=== PATIENT | female | born 1950 | race Caucasian/White ===

== ENCOUNTER 2021-04-03 20:03 | Inpatient (IN) | payer MEDICARE, OTHER ==
[~2021-04-03] VITALS: Ht 157.5 cm; Wt 49.9 kg
--- NOTE | 2021-04-03 21:00 | NUR ---
PT BIBRA C/O AGGRESSIVE BEHAVIOR AND SI WITH PLAN TO RUN INTO TRAFFIC. PT TAMAZIGHT SPEAKING WITH NIECE AT BEDSIDE FOR TRANSLATION. PER NIECE, PT IS NOT "ANSWERING CORRECTLY BECAUSE SHE HAS NOT SLEPT FOR A FEW DAYS". PT ATTACHED TO MONITOR AND POX. MD AT BEDSIDE FOR EVAL. SITTER AT BEDSIDE. PT GIVEN CALL LIGHT WITHIN REACH
[2021-04-03 21:32] LABS: BASOPHILS # (AUTO) 0.1 K/uL (0.0-0.2); EOSINOPHILS % (AUTO) 4.1 % (0.0-6.0); HEMATOCRIT 39 % (33-45); HEMOGLOBIN 12.2 g/dL (11.5-14.8); LYMPHOCYTES # (AUTO) 1.5 K/uL (0.8-4.8); MEAN CORPUSCULAR HGB CONC 31 g/dl (31.0-36.0); MEAN CORPUSCULAR VOLUME 75 fL (82-100); MONOCYTES # (AUTO) 0.4 K/uL (0.1-1.30); MONOCYTES % (AUTO) 6.3 % (2.0-12.0); NEUTROPHILS # (AUTO) 3.6 K/uL (1.8-8.9); NEUTROPHILS % (AUTO) 62.6 % (43.0-81.0); PLATELET COUNT (AUTO) 180 K/uL (150-450); WHITE BLOOD COUNT (AUTO) 5.8 K/uL (4.3-11.0)
[2021-04-03 21:48] LABS: CALCIUM, SERUM 8.7 mg/dL (8.5-10.1); CARBON DIOXIDE 22 mmol/L (21-32); CHLORIDE 106 mmol/L (98-107); CREATININE 0.6 mg/dL (0.6-1.3); GLUCOSE 107 mg/dL (74-106); POTASSIUM 3.3 mmol/L (3.5-5.1); SODIUM SERUM 139 mmol/L (136-145); UREA NITROGEN, BLOOD 11 mg/dL (7-18)
[2021-04-03 21:54] LABS: ALANINE AMINOTRANSFERASE 19 U/L (12-78); ALBUMIN 4.1 g/dL (3.4-5.0); ALKALINE PHOSPHATASE 65 U/L (46-116); ASPARTATE AMINOTRANSFERASE 25 U/L (15-37); BILIRUBIN,DIRECT 0.3 mg/dL (0.0-0.2); BILIRUBIN,TOTAL 0.9 mg/dL (0.2-1.0); TOTAL PROTEIN, SERUM 8.3 g/dL (6.4-8.2)
[2021-04-03 21:57] LABS: ACETAMINOPHEN < 2 ug/ml (10-30)
[2021-04-03 21:58] LABS: ALCOHOL, BLOOD < 3 mg/dL (0-0)
--- NOTE | 2021-04-03 22:00 | NUR ---
URINE SENT TO LAB
[2021-04-03 22:32] LABS: BILIRUBIN,URINE Negative (NEGATIVE); COLOR,URINE YELLOW (YELLOW); LEUKOCYTE ESTERASE ,URINE Small (NEGATIVE); NITRITE, URINE Negative (NEGATIVE); PROTEIN,URINE Trace mg/dl (NEGATIVE); UGLUCOSE Negative (NEGATIVE); UROBILINOGEN,URINE 0.2 EU/dL (0.2)
[2021-04-03 22:34] LABS: BACTERIA,URINE 1+ /HPF (None Seen); SQUAMOUS EPITHELIAL CELL,UR Few /HPF (None Seen)
--- NOTE | 2021-04-03 22:36 | NUR ---
TAKEN TO RADIOLOGY
[2021-04-03] MEDS ORDERED: AMLODIPINE BESYLATE 5 MG TABLET PO ONE (23:30)
[2021-04-03] MEDS ORDERED: CEPHALEXIN MONOHYDRATE 500 MG CAPSULE PO ONE ×2 (23:30→23:49)
[2021-04-03] MEDS ORDERED: AMLODIPINE BESYLATE 5 MG TABLET ONE (23:48)
--- NOTE | 2021-04-04 00:35 | NUR ---
REPORT GIVEN TO ABUNDIO PENALOZA FOR WILMAR
--- NOTE | 2021-04-04 01:30 | NUR ---
PT TRANSPORTED TO UNIT ON [facility]
[2021-04-04 02:15] VITALS: BP 145/95
[2021-04-04] MEDS ORDERED: MAGNESIUM HYDROXIDE 30 ML UDC PO PRN (02:30)
[2021-04-04] MEDS ORDERED: ACETAMINOPHEN 325 MG TABLET PO PRN (02:30)
[2021-04-04] MEDS ORDERED: MAG HYDROX/AL HYDROX/SIMETH 30 ML UDC PO PRN (02:30)
[2021-04-04] MEDS ORDERED: BLOOD SUGAR DIAGNOSTIC 1 EACH STRIP IN ONE (02:45)
[2021-04-04 03:23] VITALS: BP 105/68
--- NOTE | 2021-04-04 04:03 | NUR ---
ADMISSION NOTES: ADMITTED THIS 70Y/O FEMALE PATIENT ADMIT FROM [facility] ER / INTAILLY FROM HOME , ADMITTED TO [facility] ON 5150 HOLD , PER HOLD DTS, DTO, GOING OUTSIDE HER HOME AND RUNNING IN THE STREETS ,STARTING STRIKING OUT AT HER FAMILY MEMBER, HEATING VOCIES , DELUSIONAL PARANOID, AGITATION UPON FACE TO FACE ASSESSMENT PATIENT IS A&O X 1 , ANXIOUS , PARNOID DISHELVED ,EASILY GETS AGITATED, DISORGNIZED, TALKING TO SELF ,POOR HYGINE REFUSED TO TAKE SHOWER DENIES SI /HI AT THIS TIME, PT. IS POOR HISTORIAN, POOR INSIGHT ,POOR JUDGEMENT, PT. DENIES SI HI AT THIS TIME , BOTH MD AWARE AND NOTIFIED OF THE ADMISSION, BELONGINGS CONTRABAND WERE DONE , PT. REFUSED TO SIGNS OF ADMISSION PAPER DUE TO MENTAL CONDITION,NURSING ASSESSMENT DONE ,PT. RIGHTS DISCUSS BY FILE CLERK , PROVIDE THE PT. WITH HANDBOOK, AND MEDICATIONS GUIDE, ENVIRONMENTAL SAFETY CHECK DONE, ENCOURAGED PT. VERBALIZED ANY FEELING CONCERN TO STAFF, ORIENT TO UNIT POLICY, NO ACUTE DISTRESS NOTED,VITAL SIGNS WNL ,DENIES ANY PAIN AT THIS TIME,WILL CONTINUE TO MONITOR FOR Q15 SAFETY AND BEHAVIOR.
[2021-04-04 08:00] VITALS: BP 150/75
[2021-04-04] MEDS ORDERED: CEPHALEXIN MONOHYDRATE 500 MG CAPSULE PO ONE ×2 (09:00)
[2021-04-04] MEDS ORDERED: AMLODIPINE BESYLATE 5 MG TABLET PO ONE ×2 (09:00)
--- NOTE | 2021-04-04 09:30 | NUR ---
GRISELDA Initial Discharge Plan: Patient currently resides at home located [address] [place] [address]. Patient's niece Jose F ([phone]) is involved in pt's care. Patient's sister Jessica ([phone]) is also involved in pt's care. GRISELDA contacted niece and discussed treatment/discharge plan. GRISELDA will work with the family and MD to coordinate proper discharge plan.
--- NOTE | 2021-04-04 09:31 | NUR ---
GRISELDA Family Contact: GRISELDA contacted pt's niece Cyndy Kohler ([phone]) to gather collateral and discuss treatment/discharge plan. GRISELDA educated niece on [phone]. Niece stated that pt has been suffering with mental illness for 20 years and has refused to see a doctor or take any medications. Niece stated that they live near pt and are able to manage pt, however, it has been difficult she stated due to her behavior. Niece reported pt lives with her son but he is out of town for two weeks. Niece reported pt has been physically aggressive at home and has been very confused. She stated pt has been experiencing auditory hallucinations and that she has been "following directions". Niece stated that pt's sisters are involved in her case and her sister Jessica ([phone]) is involved as well. GRISELDA discussed discharge options because niece stated they are unsure if they will be able to manage pt at home. GRISELDA educated on nursing facility option or home with home health services. Niece stated she would have to discuss with family and will let this repairer typewriter know.
--- NOTE | 2021-04-04 09:40 | NUR ---
Treatment Plan: Pt refused to sign treatment plan and appeared very confused.
[2021-04-04] MEDS: risperiDONE 1 MG TABLET PO SCH ×2 (11:44→17:19)
[2021-04-04] MEDS: AMLODIPINE BESYLATE 5 MG TABLET PO SCH (14:39)
[2021-04-04 16:00] VITALS: BP 129/74
--- NOTE | 2021-04-04 16:56 | NUR ---
RN-CO: DR MURCIA OFFICE WAS CONTACTED, SPOKE WITH "HANY" REGARDING CONSULT ORDERED BY DR HENDRICKS.
--- NOTE | 2021-04-04 19:49 | NUR ---
GPS RN NOTE. RECEIVED PATIENT SLEEPING IN BED. PATIENT ALSO HAD 2 FAMILY VISITORS. NOTE THAT PATIENT IS SWEDISH SPEAKING ONLY. NO S/S OF PAIN AT THIS TIME. PATIENT SHOWS NO S/S OF DISTRESS. PATIENT RESPIRATIONS ARE UNLABORED AND EQUAL RISE/FALL OF CHEST. PATIENT APPEARS ALERT ORIENTED X1. PATIENT APPEARS UNKEMPT AND IS KNOWN FOR CHEEKING MEDICATIONS, WILL BUT IS MED COMPLIANT WITH FREQUENT ENCOURAGEMENT. 2 SIDE RAILS ARE UP AND CALL DAILEY IS WITHIN REACH. BED LOCKED AND LOW. WILL CONTINUE TO MONITOR Q15 MINUTES FOR SAFETY.
[2021-04-04 20:00] VITALS: BP 162/86
[2021-04-05 08:00] VITALS: BP 127/81
[2021-04-05 08:19] LABS: HEMATOCRIT 40 % (33-45); HEMOGLOBIN 12.3 g/dL (11.5-14.8); LYMPHOCYTES # (AUTO) 1.4 K/uL (0.8-4.8); LYMPHOCYTES % (AUTO) 28.3 % (20.0-44.0); MEAN CORPUSCULAR HGB CONC 31 g/dl (31.0-36.0); MEAN CORPUSCULAR VOLUME 75 fL (82-100); MONOCYTES # (AUTO) 0.4 K/uL (0.1-1.30); MONOCYTES % (AUTO) 7.9 % (2.0-12.0); NEUTROPHILS # (AUTO) 2.9 K/uL (1.8-8.9); NEUTROPHILS % (AUTO) 59.8 % (43.0-81.0); PLATELET COUNT (AUTO) 189 K/uL (150-450); WHITE BLOOD COUNT (AUTO) 4.8 K/uL (4.3-11.0)
[2021-04-05] MEDS: risperiDONE 1 MG TABLET PO SCH ×2 (08:33→16:30)
[2021-04-05] MEDS: AMLODIPINE BESYLATE 5 MG TABLET PO SCH (08:33)
[2021-04-05 08:45] LABS: CALCIUM, SERUM 8.6 mg/dL (8.5-10.1); CREATININE 0.8 mg/dL (0.6-1.3); MAGNESIUM 2.4 mg/dL (1.8-2.4); POTASSIUM 3.4 mmol/L (3.5-5.1)
[2021-04-05] MEDS ORDERED: POTASSIUM CHLORIDE 20 MEQ TAB.PRT.SR PO SCH (09:30)
--- NOTE | 2021-04-05 14:56 | NUR ---
GRISELDA Family Contact: GRISELDA received a call from pt's niece Cristela Kohler ([phone]) who stated that family made a decision that they would want pt back home upon dc.
[2021-04-05 16:00] VITALS: BP 130/77
[2021-04-05] MEDS: ENSURE ENLIVE CHOC 237 ML CAN PO SCH (17:23)
[2021-04-05 20:00] VITALS: BP 124/98
[2021-04-06 07:25] LABS: CALCIUM, SERUM 8.5 mg/dL (8.5-10.1); CREATININE 0.7 mg/dL (0.6-1.3); POTASSIUM 3.4 mmol/L (3.5-5.1)
[2021-04-06 08:00] VITALS: BP 152/87
[2021-04-06] MEDS: ENSURE ENLIVE CHOC 237 ML CAN PO SCH ×2 (08:51→18:06)
[2021-04-06] MEDS: AMLODIPINE BESYLATE 5 MG TABLET PO SCH (08:52)
[2021-04-06] MEDS: risperiDONE 1 MG TABLET PO SCH (08:52)
[2021-04-06] MEDS ORDERED: POTASSIUM CHLORIDE 20 MEQ TAB.PRT.SR PO ONE ×2 (10:00→13:30)
--- NOTE | 2021-04-06 13:54 | NUR ---
Individual Therapy: SW met with patient to conduct brief therapy on patient's presenting problem disorganized thought content. Patient appears confused and disorganized and does not respond to this SW. Pt appeared to be responding to internal stimuli.
[2021-04-06 16:00] VITALS: BP 140/99
[2021-04-06] MEDS: risperiDONE-M 0.5 MG TAB.RAPDIS PO SCH (18:05)
[2021-04-06 20:09] VITALS: BP_SYST 138; BP_SYST 158; BP_DIAS 80; BP_DIAS 98
[2021-04-07 06:52] LABS: CALCIUM, SERUM 8.5 mg/dL (8.5-10.1); CREATININE 0.6 mg/dL (0.6-1.3); POTASSIUM 4.2 mmol/L (3.5-5.1)
[2021-04-07 08:00] VITALS: BP 146/96
[2021-04-07] MEDS: AMLODIPINE BESYLATE 5 MG TABLET PO SCH (08:33)
[2021-04-07] MEDS: risperiDONE-M 0.5 MG TAB.RAPDIS PO SCH ×3 (08:33→20:50)
[2021-04-07] MEDS: ENSURE ENLIVE CHOC 237 ML CAN PO SCH ×2 (08:34→17:19)
[2021-04-07 16:00] VITALS: BP 150/71
[2021-04-07 20:00] VITALS: BP 155/87
[2021-04-07] MEDS: LORAZEPAM 1 MG TABLET PO PRN (22:19)
--- NOTE | 2021-04-07 22:21 | NUR ---
RN NOTES: ANXIETY PT. C/O VERY ANXIOUS ,PACING IN HER ROOM , PARANOID HYPERVERBAL , TALKING TO SELF, NON REDICTABLE, ATIVAN 1 MG PO PRN GIVEN , WILL CONTINUE TO MONITOR.
[2021-04-08 08:00] VITALS: BP 153/88
[2021-04-08] MEDS: risperiDONE-M 0.5 MG TAB.RAPDIS PO SCH ×3 (08:25→21:20)
[2021-04-08] MEDS: AMLODIPINE BESYLATE 5 MG TABLET PO SCH (08:26)
[2021-04-08] MEDS: ENSURE ENLIVE CHOC 237 ML CAN PO SCH ×2 (08:28→16:36)
[2021-04-08 16:00] VITALS: BP 152/87
[2021-04-08 20:04] VITALS: BP 141/90
[2021-04-08] MEDS: LORAZEPAM 1 MG TABLET PO PRN (22:22)
--- NOTE | 2021-04-08 22:23 | NUR ---
Pt anxious. Pacing in room and wondering hallways. Unable to sleep. Least restrictive measures ineffective. Ativan 1 mg po prn given as ordered. Will continue to monitor.
--- NOTE | 2021-04-08 23:30 | NUR ---
Post 1 hr Ativan effective. Pt asleep in bed easy to arouse. Frequent visual check done for safety. Will continue to monitor.
[2021-04-09] MEDS: ENSURE ENLIVE CHOC 237 ML CAN PO SCH ×2 (07:45→16:02)
[2021-04-09 08:00] VITALS: BP 133/73
[2021-04-09] MEDS: AMLODIPINE BESYLATE 5 MG TABLET PO SCH (08:09)
[2021-04-09] MEDS: risperiDONE-M 0.5 MG TAB.RAPDIS PO SCH ×3 (08:09→21:00)
--- NOTE | 2021-04-09 08:58 | NUR ---
GRISELDA Family Contact: GRISELDA spoke with patient's niece Cristela Kohler ([phone]) who stated that they would want pt to go to a SNF instead of home.
--- NOTE | 2021-04-09 11:04 | NUR ---
Court Hearing: Patient's court hearing for 5250 was today and it was upheld for danger to self and others.
--- NOTE | 2021-04-09 11:05 | NUR ---
SNF Referral: SW sent clinicals to [facility] for review for placement.
--- NOTE | 2021-04-09 11:52 | NUR ---
SNF Contact: SW received a call from Pam from [facility] who stated pt is accepted.
[2021-04-09 16:00] VITALS: BP 117/72
[2021-04-09 20:35] VITALS: BP 156/91
--- NOTE | 2021-04-09 21:20 | NUR ---
GPS RN NOTE: PATIENT WAS OFFERED RISPERDAL. PATIENT REFUSED X3. EDUCATED PATIENT ON RISK AND BENEFITS OF TAKING/REFUSING MEDICATION.
[2021-04-10 08:00] VITALS: BP 148/86
[2021-04-10] MEDS: ENSURE ENLIVE CHOC 237 ML CAN PO SCH ×2 (08:01→16:30)
[2021-04-10] MEDS: risperiDONE-M 0.5 MG TAB.RAPDIS PO SCH ×3 (08:10→16:34)
[2021-04-10] MEDS: AMLODIPINE BESYLATE 5 MG TABLET PO SCH (09:06)
--- NOTE | 2021-04-10 14:00 | NUR ---
GRISELDA Family Contact: SW contacted patient's niece Cristela Kohler ([phone]) and stated pt is accepted at [facility] and niece was agreeable with this.
[2021-04-10 16:00] VITALS: BP 147/98
[2021-04-10 20:00] VITALS: BP 162/76
[2021-04-11 08:00] VITALS: BP 133/91
[2021-04-11] MEDS: ENSURE ENLIVE CHOC 237 ML CAN PO SCH ×2 (08:00→17:04)
[2021-04-11] MEDS: AMLODIPINE BESYLATE 5 MG TABLET PO SCH (09:25)
[2021-04-11] MEDS: risperiDONE-M 0.5 MG TAB.RAPDIS PO SCH ×2 (09:25→16:22)
[2021-04-11 16:00] VITALS: BP 147/74
[2021-04-11 20:00] VITALS: BP 160/84
[2021-04-11] MEDS: ZOLPIDEM TARTRATE 5 MG TABLET PO PRN (21:52)
--- NOTE | 2021-04-11 21:55 | NUR ---
GPS RN NOTES: PATIENT REQUESTED FOR SLEEP MED. AMBIEN 5MG GIVEN PO AT 2152. WILL CONTINUE TO MONITOR.
[2021-04-12 08:00] VITALS: BP 155/75
[2021-04-12] MEDS: risperiDONE-M 0.5 MG TAB.RAPDIS PO SCH ×2 (08:39→16:46)
[2021-04-12] MEDS: ENSURE ENLIVE CHOC 237 ML CAN PO SCH ×2 (08:39→16:46)
[2021-04-12] MEDS: AMLODIPINE BESYLATE 5 MG TABLET PO SCH (08:40)
[2021-04-12 16:00] VITALS: BP 123/82
[2021-04-12 20:00] VITALS: BP 154/89
[2021-04-13] MEDS: ENSURE ENLIVE CHOC 237 ML CAN PO SCH ×2 (07:48→16:15)
[2021-04-13] MEDS: risperiDONE-M 0.5 MG TAB.RAPDIS PO SCH ×2 (08:21→16:17)
[2021-04-13] MEDS: AMLODIPINE BESYLATE 5 MG TABLET PO SCH (08:21)
[2021-04-13 10:17] VITALS: BP 152/79
--- NOTE | 2021-04-13 18:11 | NUR ---
PT REMAINS ISOLATIVE, CALM, COOPERATIVE AND COMPLIANT WITH CARE. PT IS MEDICATION COMPLIANT. PT IS REDIRECTABLE. PT IS PLEASANT. NO BEHAVIORAL ISSUES T/O SHIFT.
[2021-04-13 20:35] VITALS: BP 132/76
[2021-04-13] MEDS: LORAZEPAM 1 MG TABLET PO PRN (22:34)
--- NOTE | 2021-04-13 22:35 | NUR ---
RN NOTE PATIENT NOTED TO BE ANXIOUS, RESTLESS, PACING IN THE ROOM, TALKING TO HERSELF, UNABLE TO SLEEP AT THIS TIME. PRN ATIVAN 1 MG PO ADMINISTERED. WILL CONTINUE TO MONITOR.
[2021-04-14] MEDS: ZOLPIDEM TARTRATE 5 MG TABLET PO PRN (01:19)
--- NOTE | 2021-04-14 01:21 | NUR ---
RN NOTE: INSOMNIA PATIENT IS UNABLE TO SLEEP, ANXIOUS, PRN AMBIEN 5 MG 1 TAB PO ADMINISTERED.
[2021-04-14 08:00] VITALS: BP 135/80
[2021-04-14] MEDS: ENSURE ENLIVE CHOC 237 ML CAN PO SCH ×2 (08:37→17:59)
[2021-04-14] MEDS: risperiDONE-M 0.5 MG TAB.RAPDIS PO SCH ×2 (08:49→17:59)
[2021-04-14] MEDS: AMLODIPINE BESYLATE 5 MG TABLET PO SCH (08:49)
[2021-04-14 16:00] VITALS: BP 124/63
[2021-04-14 19:47] VITALS: BP 150/90
[2021-04-14 19:55] VITALS: BP 150/90
--- NOTE | 2021-04-15 06:45 | NUR ---
RN NOTE PATIENT SLEPT WELL AT NIGHT. NO CHANGES NOTED THROUGH OUT THE SHIFT.
[2021-04-15 08:00] VITALS: BP 129/94
[2021-04-15] MEDS: risperiDONE-M 0.5 MG TAB.RAPDIS PO SCH ×2 (08:00→16:25)
[2021-04-15] MEDS: ENSURE ENLIVE CHOC 237 ML CAN PO SCH ×2 (08:02→16:24)
[2021-04-15] MEDS: AMLODIPINE BESYLATE 5 MG TABLET PO SCH (08:02)
[2021-04-15 16:00] VITALS: BP 135/64
[2021-04-15 19:41] VITALS: BP 147/80
--- NOTE | 2021-04-15 22:13 | NUR ---
Covid -19 nasal test done for possible discharge tomorrow. Specimen delivered to Lab. Charge nurse RN aware. Will continue to monitor. Will endorse to next shift.
[2021-04-16] MEDS: ZOLPIDEM TARTRATE 5 MG TABLET PO PRN (03:11)
--- NOTE | 2021-04-16 03:12 | NUR ---
Pt awake and roaming hallways. Unable to sleep. Keeps waking up neighbors. Least restrictive measures ineffective.Ambien 5 mg 1 tab po prn given as ordered. Will continue to monitor.
--- NOTE | 2021-04-16 04:15 | NUR ---
Post 1 hr Ambien effective. Pt asleep in bed easy to arouse. Frequent visual check done for safety. Will continue to monitor.
[2021-04-16] MEDS: ENSURE ENLIVE CHOC 237 ML CAN PO SCH (07:33)
--- NOTE | 2021-04-16 08:25 | NUR ---
SW Discharge Note: Patient will be discharged to [facility] [address] [facility], [place] [address] ([phone]). Please arrange ambulance transportation at 1PM. Spoke with Pam, Admin Coordinator at the facility who states they are ready to accept the patient today. Patients vlad Kohler ([phone]) is aware and agreeable. Patient is alert and oriented x1, is unable to plan for self-care at this time, however, is willing to accept care at [facility]. Patient denies any suicidal or homicidal ideation. Patient will follow-up at the facility with Dr. Burton (psychiatrist) [address] [address]; ([phone]) and ([place] [facility]) Dr. Cedillo [address] [facility] [address], [place] [address]; ([phone]). Patient presents with euthymic mood and congruent affect.
[2021-04-16 08:52] VITALS: BP 141/92
[2021-04-16] MEDS: risperiDONE-M 0.5 MG TAB.RAPDIS PO SCH (08:52)
[2021-04-16] MEDS: AMLODIPINE BESYLATE 5 MG TABLET PO SCH (08:52)
--- NOTE | 2021-04-16 14:10 | NUR ---
Patient has been discharged to [facility] @ 8152. Pt transported via ambulance. Patients vlad Kohler ([phone]) is aware and agreeable. Patient is alert and oriented x1, is unable to plan for self-care at this time, however, is willing to accept care at [facility]. Patient denies any suicidal or homicidal ideation as well as visual and auditory hallucinations. Medication recon given in discharge packet along with after care instructions/exitcare. All forms signed and copied placed in DC packet. All belongings returned. Report given to Mark DEL CASTILLO @ 2371. wound/ skin pictures taken. Pt taken out of the unit by ambulance transport team via [facility] @ 4054.
== END 2021-04-16 13:35 | DRG 885 ==
LOC: ER 20:08 → GPS 04-04 02:03
PROVIDERS: ADMIT Psychiatry & Neurology Psychiatry; ATTEND Nurse Practitioner Acute Care
DX: F20.0 Paranoid schizophrenia (principal); N39.0 Urinary tract infection, site not specified; F29 Unspecified psychosis not due to a substance or known physiological condition; Z73.6 Limitation of activities due to disability; E87.6 Hypokalemia; I10 Essential (primary) hypertension; B96.89 Other specified bacterial agents as the cause of diseases classified elsewhere; F03.90 Unspecified dementia, unspecified severity, without behavioral disturbance, psychotic disturbance, mood disturbance, and anxiety; I67.2 Cerebral atherosclerosis; I70.0 Atherosclerosis of aorta
CPT/HCPCS: 36415; 70450-TC; 71045-TC; 80048-TC; 80061-TC; 80076-TC; 81001; 82962-TC; 83735-TC; 84484-TC; 85025-TC; 87081-TC; 87086-TC; 97116-TC; 97530-TC; C9803; G0480